=== PATIENT | female | born 1985 | race Caucasian/White ===

== ENCOUNTER 2022-11-12 16:24 | Emergency (ER) | payer OTHER, SELFPAY ==
[2022-11-12 16:33] VITALS: BP 137/78; PULSE 78; RESP 19; TEMP 36.6; O2SAT 99; BMI 27.4
--- NOTE | 2022-11-12 16:45 | DI.RAD.S_ITS ---
PROCEDURE: XR SHOULDER RT MIN 2V INDICATIONS: injury TECHNIQUE: 3 views of the shoulder were acquired. COMPARISON: None. FINDINGS: Bones: No fractures or dislocations. No suspicious bony lesions. Visualized ribs appear intact. Soft tissues: No suspicious soft tissue calcifications. IMPRESSION: Normal right shoulder Dictated by: Sergio Vasques M.D. on 11/12/2022 at 17:45 Approved by: Sergio Vasques M.D. on 11/12/2022 at 17:46
--- NOTE | 2022-11-12 16:51 | ED.BACK ---
HPI - Back Pain/Injury <Katlyn Asencio PA-C - Last Filed: 11/12/22 20:13> General Chief Complaint: Back Pain/Injury Stated Complaint: back injury Time Seen by Provider: 11/12/22 16:42 Source: patient History of Present Illness HPI Narrative: 37-year-old female presents with concern for injury sustained at work on Thursday. 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 As she was doing this she lost her visual basic .net developer and the water went out to the side she refused to let go of it and the weight of the ladder pulled on her shoulder and back. She continued with her day but was having pain, she had the next day off today she tried to go to work after taking about 600 mg of ibuprofen and was unable to do much work due to ongoing pain in her mid back as well as her right shoulder. Patient states she has not tried anything else for pain or relief of her symptoms. She denies any history of back problems, shoulder problems or previous injuries. She does endorse a sensation that her hand is asleep which she notices most on the palm side of her hand on her 2nd and 3rd digits. She states that her back pain was so severe the last couple of nights that she is not been able to sleep well. She denies any lower extremity weakness, numbness or tingling tingling of her lower extremities, fevers, chills, nausea, vomiting, diarrhea, constipation or any other symptoms. Related Data Previous Rx's Medication Instructions Recorded baclofen 10 mg tablet 10 mg PO TID Muscle spasm 10 days 11/12/22 #30 tabs Allergies Allergy/AdvReac Type Severity Reaction Status Date / Time vancomycin Allergy Hives Verified 11/12/22 16:33 Review of Systems <Katlyn Asencio PA-C - Last Filed: 11/12/22 20:13> Review of Systems Narrative: See HPI Patient History <Katlyn Asencio PA-C - Last Filed: 11/12/22 20:13> Social History Smoking Status: Never smoker Smoking Status: Never smoker alcohol intake frequency: holidays/special occasions only Substance Use Type: does not use Exam <Katlyn Asencio PA-C - Last Filed: 11/12/22 20:13> Narrative Exam Narrative: GENERAL: 37 year old patient appears stated age. Well-developed patient, in mild distress. HEAD: Atraumatic. Normocephalic. EYES: Pupils equal round and reactive. Extraocular motions intact. No scleral icterus. No injection or drainage. ENT: Nose without bleeding, purulent drainage. Airway patent. NECK: Trachea midline. Non tender CARDIOVASCULAR: Regular rate and rhythm without murmurs, gallops, or rubs. RESPIRATORY: Clear to auscultation. Breath sounds equal bilaterally. No wheezes, rales, or rhonchi. GASTROINTESTINAL: Abdomen soft, non-tender, nondistended. EXTREMITIES: The patient's affected right shoulder she has fairly normal active range of motion, she does have a positive scarf sign and some tenderness of her deltoid as well as trapezius. No edema or joint tenderness. She has normal visual basic .net developer strength of the fingers, with normal movement and sensation, normal active movement at the wrist and elbow. BACK: Spinous processes are Nontender without deformity or crepitance. There is paraspinal tenderness bilaterally in the thoracic spine, more prominent on the right. No flank tenderness. NEURO: AOx3. SKIN: No rash or erythema of visible areas Initial Vital Signs Initial Vital Signs: Vital Signs Temperature 97.8 F 11/12/22 16:33 Pulse Rate 78 11/12/22 16:33 Respiratory Rate 19 11/12/22 16:33 Blood Pressure 137/78 11/12/22 16:33 Pulse Oximetry 99 11/12/22 16:33 Oxygen Delivery Method Room Air 11/12/22 16:33 <Romaine Kim DO - Last Filed: 11/13/22 03:04> Initial Vital Signs Initial Vital Signs: Vital Signs Temperature 97.8 F 11/12/22 16:33 Pulse Rate 78 11/12/22 16:33 Respiratory Rate 19 11/12/22 16:33 Blood Pressure 137/78 11/12/22 16:33 Pulse Oximetry 99 11/12/22 16:33 Oxygen Delivery Method Room Air 11/12/22 16:33 Course <Katlyn Asencio PA-C - Last Filed: 11/12/22 20:13> Orders Ordered: ED Orders 11/12/22 18:30 XR lumbar spine 2-3V Stat XR thoracic spine 2V Stat Discontinued Medications Acetaminophen (Acetaminophen 325 Mg Tablet) 975 mg PO NOW ONE Stop: 11/12/22 18:32 Last Admin: 11/12/22 19:16 Dose: 975 mg Documented By: SPF Vital Signs Vital signs: Vital Signs - 8 hr 11/12/22 19:10 Pulse Rate 68 Respiratory Rate 16 Blood Pressure 132/80 Pulse Oximetry 99 Oxygen Delivery Method Room Air <Romaine Kim DO - Last Filed: 11/13/22 03:04> Orders Ordered: ED Orders 11/12/22 18:30 XR lumbar spine 2-3V Stat XR thoracic spine 2V Stat Discontinued Medications Acetaminophen (Acetaminophen 325 Mg Tablet) 975 mg PO NOW ONE Stop: 11/12/22 18:32 Last Admin: 11/12/22 19:16 Dose: 975 mg Documented By: SPF Vital Signs Vital signs: Vital Signs - 8 hr 11/12/22 19:10 Pulse Rate 68 Respiratory Rate 16 Blood Pressure 132/80 Pulse Oximetry 99 Oxygen Delivery Method Room Air MDM - Back Pain/Injury <Katlyn Asencio PA-C - Last Filed: 11/12/22 20:13> Differential Diagnosis Differential diagnosis: Likely lumbar radiculopathy, strain of lumbar region, thoracic back pain and other (Rotator cuff injury, work injury, muscle spasm) Medical Records Attestation: I reviewed the patient's medical records. Lab Data Attestation: I reviewed the patient's lab results. Imaging Data Extremity x-ray #1: Radiologist's Impression: [address] [address] XRay Report Signed Patient: Cheryl Cheek MR#: [id number] : 1985 Acct:[id number] Age/Sex: 37 / F Date of Service: 11/12/22 Loc: ED Accession Number: [id number] ?? Procedure: XR shoulder RT min 2V Ordering Provider: Harjeet Rojas MD PROCEDURE:? XR SHOULDER RT MIN 2V ? INDICATIONS:? injury ? TECHNIQUE:? 3 views of the shoulder were acquired.? ? COMPARISON:? None. ? FINDINGS:? ? Bones:? No fractures or dislocations.? No suspicious bony lesions.? Visualized ribs appear intact.? ? Soft tissues:? No suspicious soft tissue calcifications.? ? IMPRESSION:? Normal right shoulder ? ? Dictated by: Sergio Vasques M.D. on 11/12/2022 at 17:45 ? ? Approved by: Sergio Vasques M.D. on 11/12/2022 at 17:46?? XR lumbar: Radiologist's Impression: [address] [address] XRay Report Signed Patient: Cheryl Cheek MR#: [id number] : 1985 Acct:[id number] Age/Sex: 37 / F Date of Service: 11/12/22 Loc: ED Accession Number: [id number] ?? Procedure: XR lumbar spine 2-3V Ordering Provider: Katlyn Asencio P.A-C PROCEDURE:? XR LUMBAR SPINE 2-3V ? INDICATIONS:? back pain, work injury ? TECHNIQUE:? 3 views of the lumbar spine were acquired.? ? COMPARISON:? None. ? FINDINGS:? ? Bones:? 5 [id number] vertebrae are present.? There is normal bony alignment.? No vertebral body compression fractures.? No suspicious bony lesions.? ? Soft tissues:? Overlying bowel gas pattern is normal.? No suspicious soft tissue calcifications.? ? ? IMPRESSION:? Normal lumbar spine. ? ? Dictated by: Sergio Vasques M.D. on 11/12/2022 at 18:56 ? ? Approved by: Sergio Vasques M.D. on 11/12/2022 at 18:56?? XR thoracic: Radiologist's Impression: [address] [address] XRay Report Signed Patient: Cheryl Cheek MR#: [id number] : 1985 Acct:[id number] Age/Sex: 37 / F Date of Service: 11/12/22 Loc: ED Accession Number: [id number] ?? Procedure: XR thoracic spine 2V Ordering Provider: Katlyn Asencio P.A-C PROCEDURE:? XR THORACIC SPINE 2V ? INDICATIONS:? back pain, work injury ? TECHNIQUE:? 3 views of the thoracic spine were acquired.? ? COMPARISON:? None. ? FINDINGS:? ? Bones:? No fractures or dislocations.? Minimal degenerative changes.? No suspicious bony lesions.? 12 pairs of ribs are noted, and appear intact where visualized.? ? Soft tissues:? No paravertebral stripe thickening.? ? ? IMPRESSION:? Minimal degenerative changes.? No acute abnormality of the thoracic spine. ? ? Dictated by: Sergio Vasques M.D. on 11/12/2022 at 18:56 ? ? Approved by: Sergio Vasques M.D. on 11/12/2022 at 18:57?? 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 Right shoulder pain and back pain. X-rays are unremarkable however patient does have some slight reduced range of motion positive scarf sign and tenderness consistent with muscle spasm as well as some numbness in her 2nd and 3rd fingers of the affected right arm. This is consistent with a mild rotator cuff injury, possible radiculopathy and muscle spasm. She is advised Tylenol, ibuprofen, consider seeing orthopedics and/or physical therapy, take 5 days off and then light duty after that, patient states she is actually leaving the state already for a trip and will be gone for the next 2 weeks or so, she is advised to follow up after this or seek care in the interim she feels she has new or worsening symptoms. L and I paperwork and returned to work activity prescription form are feel that during the patient's visit. Return precautions provided, follow-up plan discussed, all questions answered Discharge Plan Departure Patient Disposition: Home Clinical Impression: Injury of right rotator cuff, Back pain, Work related injury, Acute pain of right shoulder, Muscle spasm Instructions: DI for Rotator Cuff Injury, DI for Back Spasm Activity Restrictions/Additional Instructions: Thank you for letting us be part of your care today in the emergency department. You came in with concern for back pain and right shoulder pain after use sustained an injury at work on Thursday. The x-ray of your shoulder looked okay however you do have some findings consistent with a rotator cuff injury, I do not know that you have torn anything given you have pretty good range of motion however I am concerned that you have strain/sprain things. We also did x-rays of your thoracic and lumbar spine today. These looked okay, I think you are having some muscle spasming. I think if we reasonable to follow up with Orthopedics and/or physical therapy. It can take 2 or 3 weeks for your symptoms to improve even a few just have some strained muscles. I feel that your L and I paperwork today as well as your activity prescription for return to work. I would like you to take it for least 5 days off and after that you will likely need to be on light duty until you are improving. I have prescribed a muscle relaxer and recommend you take Tylenol and ibuprofen alternating for pain, he can also try heat and ice to see if this helps. There are also some aedn-uag-nkphjto options such as diclofenac gel that may be helpful. There is no evidence of an emergent or life threatening illness at this time, but follow up with your doctor in 1-2 days is recommended nonetheless to continue to rule out serious underlying causes of your symptoms. Please call the office for an appointment. Please return to the Emergency Department for any worsening or persistent symptoms. Please take medications as directed. Prescriptions: New baclofen 10 mg tablet 10 mg PO TID 10 Days Qty: 30 0RF Stand Alone Forms: Patient Portal/API <Romaine Kim DO - Last Filed: 11/13/22 03:04> Cosign ED Attending Cosjohnathonature Attestation: I was immediately available in the department for consultation. This documentation has been reviewed and I agree with assessment and plan. Supervised by Romaine Kim DO
--- NOTE | 2022-11-12 18:30 | DI.RAD.S_ITS ---
PROCEDURE: XR LUMBAR SPINE 2-3V INDICATIONS: back pain, work injury TECHNIQUE: 3 views of the lumbar spine were acquired. COMPARISON: None. FINDINGS: Bones: 5 [id number] vertebrae are present. There is normal bony alignment. No vertebral body compression fractures. No suspicious bony lesions. Soft tissues: Overlying bowel gas pattern is normal. No suspicious soft tissue calcifications. IMPRESSION: Normal lumbar spine. Dictated by: Sergio Vasques M.D. on 11/12/2022 at 18:56 Approved by: Sergio Vasques M.D. on 11/12/2022 at 18:56
--- NOTE | 2022-11-12 18:30 | DI.RAD.S_ITS ---
PROCEDURE: XR THORACIC SPINE 2V INDICATIONS: back pain, work injury TECHNIQUE: 3 views of the thoracic spine were acquired. COMPARISON: None. FINDINGS: Bones: No fractures or dislocations. Minimal degenerative changes. No suspicious bony lesions. 12 pairs of ribs are noted, and appear intact where visualized. Soft tissues: No paravertebral stripe thickening. IMPRESSION: Minimal degenerative changes. No acute abnormality of the thoracic spine. Dictated by: Sergio Vasques M.D. on 11/12/2022 at 18:56 Approved by: Sergio Vasques M.D. on 11/12/2022 at 18:57
[2022-11-12 19:10] VITALS: BP 132/80; PULSE 68; RESP 16; O2SAT 99
[2022-11-12] MEDS: ACETAMINOPHEN 325 MG TABLET 975 MG PO (19:16)
== END 2022-11-12 20:07 | disposition home or self-care (01) ==
PROVIDERS: Emergency Provider Student in an Organized Health Care Education/Training Program
DX: S46.001A Unspecified injury of muscle(s) and tendon(s) of the rotator cuff of right shoulder, initial encounter (principal); M25.511 Pain in right shoulder; M54.6 Pain in thoracic spine; M62.830 Muscle spasm of back; X50.9XXA Other and unspecified overexertion or strenuous movements or postures, initial encounter; Y99.0 Civilian activity done for income or pay
CPT/HCPCS: 72070; 72100; 73030; 99283